=== PATIENT | female | born 1955 | race Caucasian/White ===

== ENCOUNTER → 2016-06-30 | Outpatient (CLI) | payer BC ==
[~2016-06-30] MED LIST: BENTYL 20MG20 MG/TAB PO; CELEXA40 MG PO; CORGARD40 MG PO; NORCO 325 MG-51 TAB PO; PRIL40 PO
== END ==
LOC: MC.RAD 10:35
DX: Z12.31 Encounter for screening mammogram for malignant neoplasm of breast (principal)

== ENCOUNTER → 2018-07-25 | Outpatient (CLI) | payer BC | LOC: MC.RAD 09:46 | DX: Z12.31 Encounter for screening mammogram for malignant neoplasm of breast (principal) ==

== ENCOUNTER 2019-12-05 11:20 | Day surgery (SDC) | payer MEDICARE, BC ==
[~2019-12-05] VITALS: Ht 172.8 cm; Wt 112.1 kg
[2019-12-05] VITALS (10 sets, daily range): BP systolic 100–128; BP diastolic 53–79; PULSE 52–62; TEMP 98.2
[2019-12-05] MEDS ORDERED: TYLENOL 325MG325 MG PO (12:03)
[2019-12-05] MEDS ORDERED: LIPITOR20 MG PO (12:04)
[2019-12-05] MEDS ORDERED: MULTIVITAMIN FO1 CAP PO (12:05)
[2019-12-05 12:21] LABS: CALCIUM 9.7 mg/dL (8.4-10.2); CREATININE, serum 0.66 (0.52-1.25); POTASSIUM 4.3 mmol/L (3.4-5.0)
[2019-12-05 12:23] LABS: INR 1.1 (0.8-3.0); PROTHROMBIN TIME 11.8 SECONDS (9.7-12.8)
[2019-12-05 12:26] LABS: PARTIAL THROMBOPLASTIN TIME 32.6 SECONDS (26.0-37.0)
[2019-12-05 12:35] LABS: HEMATOCRIT 40.7 % (37.0-47.0); HEMOGLOBIN 13.4 g/dl (12.5-16.0); MEAN CELL VOLUME 92 fl (80.0-100.0); MEAN CORPUSCULAR HEMOGLOBIN 30 pg (27.0-31.0); MEAN CORPUSCULAR HGB CONC 33 g/dl (33.0-37.0); MEAN PLATELET VOLUME 11.2 fl (7.4-10.4); PLATELET COUNT 209 K/mm3 (130-400); RED BLOOD COUNT 4.45 M/mm3 (4.10-5.30); REDCELL DISTRIBUTION WIDTH-CV 13.8 % (11.5-14.5)
--- NOTE | 2019-12-05 13:53 | NUR ---
SEE MERGE FOR MEDICATION ADMINISTRATION TIMES AND INTRA AND POST SEDATION ASSESSMENTS.
[2019-12-05] MEDS ORDERED: IMDUR 60MG60 MG/TAB PO (14:32)
--- NOTE | 2019-12-05 14:45 | NUR ---
Pt to express unit bay 15 via bed. Pt awake and alert. Denies pain or nausea. VSS. TR band to right wrist is set at 15ml of air. Pt resting. Denies further needs. Will continue to monitor. Call light within reach.
--- NOTE | 2019-12-05 15:00 | NUR ---
Pt continues to rest. Lunch tray ordered for pt. Pt takes sips of water without difficulties. Call light within reach.
--- NOTE | 2019-12-05 16:00 | NUR ---
Pt continues to rest. Tolerating po food and fluids without difficulties. Call light within reach.
--- NOTE | 2019-12-05 16:45 | NUR ---
TR BAND deflated by 5 ml. Will continue to monitor. Pt denies any pain or nausea. Call light within reach.
--- NOTE | 2019-12-05 17:00 | NUR ---
pt care assumed from Caty MITCHELL. Pt doing well, rt radial site free of bleeding and hematoma. 5 left in band at this time. dc pending.
--- NOTE | 2019-12-05 17:45 | NUR ---
Pt is ambulatory to in unit with steady gait. TR band has been deflated and site dressed with bandaid, and light compression dressing of folded 2x2 and coban. cms intact distal. pt wearing splint home. We have reviewed dc/rx and fu instructions and pt denies questions. iv dc'd with cath intact, dressing applied. pt is escorted to exit via wheelchair.
== END 2019-12-05 17:45 | disposition home or self-care (01) ==
LOC: COL.CAR 11:20
PROVIDERS: Internal Medicine Cardiovascular Disease
DX: I25.10 Atherosclerotic heart disease of native coronary artery without angina pectoris (principal); R94.39 Abnormal result of other cardiovascular function study; F41.9 Anxiety disorder, unspecified; M19.90 Unspecified osteoarthritis, unspecified site; F32.9 Major depressive disorder, single episode, unspecified; G43.909 Migraine, unspecified, not intractable, without status migrainosus; K21.0 Gastro-esophageal reflux disease with esophagitis; E78.5 Hyperlipidemia, unspecified; E66.9 Obesity, unspecified; Z87.11 Personal history of peptic ulcer disease; Z68.38 Body mass index [BMI] 38.0-38.9, adult
CPT/HCPCS: J1644; J2250; J2405; J3010; Q9967

== ENCOUNTER 2022-02-22 17:03 | Emergency (ER) | payer MEDICARE, BC ==
[~2022-02-22] VITALS: Ht 172.7 cm; Wt 100.0 kg
[~2022-02-22 17:03] MED LIST changes: +IMDUR 60MG60 MG/TAB PO; +LIPITOR20 MG PO; +MULTIVITAMIN FO1 CAP PO; +TYLENOL 325MG325 MG PO
[2022-02-22 17:46] VITALS: TEMP 97.9
[2022-02-22 18:55] VITALS: BP 107/69; PULSE 58
== END 2022-02-22 18:55 | disposition home or self-care (01) ==
LOC: COL.ER 17:03
DX: S93.601A Unspecified sprain of right foot, initial encounter (principal); W18.40XA Slipping, tripping and stumbling without falling, unspecified, initial encounter; X50.1XXA Overexertion from prolonged static or awkward postures, initial encounter; Y92.009 Unspecified place in unspecified non-institutional (private) residence as the place of occurrence of the external cause